=== PATIENT | female | born 1930 | race Caucasian/White ===

== ENCOUNTER 2019-01-08 13:46 | Emergency (ER) | payer OTHER ==
[~2019-01-08] VITALS: Ht 142.2 cm; Wt 50.4 kg
[~2019-01-08 13:46] MED LIST: ? HTN MED; ACET325; ALEN70; ALEN70 PO; ALUMAGX30; AMLO5 PO; ASPI81CH PO; ASPI81EC; ASPI81EC PO; BECLNI16.8; CALCAVITDA; CARV6.25 PO; CETI10; CHOL10002 PO; CIPR500 PO; CITA20 PO; CLON.1 PO; DONE10 PO; DONE5; ERGO400 PO; FISH1000; FISH1000 PO; FURO20 PO; IBUP400 PO; ISOMON60ER PO; LISI20; LISI20 PO; LOVA40; LOVA40 PO; MEMA10 PO; NAPR220; NAPR220 PO; NEBI5 PO; NITR.4SL; NITR.4SL SL; OXYACE5T PO; PROVASTATIN; TAMS.4ER; TOCO400 PO; WARF5 PO; WARF7.5 PO; [UNRECOGNIZED DRUG - OTHER]
--- NOTE | 2019-01-08 17:14 | NUR ---
[facility] CLINICAL ASSESSMENT. Asked by ER Dr to visit pt and louann in ER #9. Pt smiled when I introduced myself. She is nonparticipatory in the conversation, even when I included her in our conversation at the bedside. Pt is an 89 yr old female with hx of moderate dementia. She has additional PMHistory of osteoporosis, HTN, pacemaker. She was heard falling and observed to be wincing with right hip and knee pain, reluctant to bear wt on the right early this am. Xray done in ER is negative for fx. Pt & moved in to louann's home many years ago when pt's husb became gravely ill. He has since . Pt remains at home with her daughter, Migdalia, providing her care, which has steadily increased in intensity with her progression of alzheimers dementia. Louann has many questions about making her home more safe for pt. She has never had HH services for her mom but has experience with HH and Hospice in her home when her dad was ill. Reviewed criteria for HH, including home bound status with louann. Pt has started having frequent falls and needing more supervision and assist with mobility and ADL's per louann. Her dementia and decreased mobilitiy make leaving the home a hardship even for medical appointments. Louann is very receptive and would like PT/OT evals for caregiver training and a home safety eval/instruction. She has had good experiences with [facility] services and requests them now. Paperwork for HH referral obtained and completed. This is to be faxed to [facility] tomorrow morning per care management dept. All paperwork and a copy of pt's newly completed POLST brought to Care Managers. Pt's PCP is Dr Wisdom. Louann reports they saw him recently, reviewed goals of care, discussed completing a POLST but it did not get signed. Louann has the POLST form with her. It states pt does not want CPR or intubation. She does not want artificial nutrition, only limited interventions. It is signed by the pt. Copy of completed & now signed POLST taken to medical records to be scanned into pt's EMR. Time spent with louann discussing local support groups & resources, [employer], medical equipment that may be helpful. Written information given on all of these resources and a booklet for CG's of those with dementia and an advanced care planning resource book, "Hard Choices for [place] People". Louann was very appreciative of the time and information. She is grateful her mom is able to go home today as she does not do well when in unfamiliar surroundings. We discussed requesting a screening for services and assist via [employer] so that in the future if a higher level of care or respite caregiving needed in the home or care outside of her home she would know what was available for assistance or what resources would need to be spent down. Pt has not had contact with APD previously and does not receive medicaid/OHP assistance.
== END 2019-01-08 15:44 | disposition home or self-care (01) ==
LOC: ER 13:46
DX: S80.11XA Contusion of right lower leg, initial encounter (principal); M25.561 Pain in right knee; M25.551 Pain in right hip; G30.9 Alzheimer's disease, unspecified; F02.80 Dementia in other diseases classified elsewhere, unspecified severity, without behavioral disturbance, psychotic disturbance, mood disturbance, and anxiety; I10 Essential (primary) hypertension; E78.5 Hyperlipidemia, unspecified; M19.90 Unspecified osteoarthritis, unspecified site; Z91.012 Allergy to eggs; Z79.82 Long term (current) use of aspirin; Z79.899 Other long term (current) drug therapy; Z88.5 Allergy status to narcotic agent; Z87.891 Personal history of nicotine dependence; W01.0XXA Fall on same level from slipping, tripping and stumbling without subsequent striking against object, initial encounter
CPT/HCPCS: 73502; 99283-25